=== PATIENT | male | born 1975 | race African-American/Black ===

== ENCOUNTER 2024-10-15 11:54 | Inpatient (IN) | payer MEDICARE, MEDICAID ==
[2024-10-15 12:32] LABS: #Basophils 0.04 10x3/uL (0.0-0.2); %Basophils 0.5 % (0.0-1.0); %Eosinophils 4.5 % (0.0-10.0); %Lymphocytes 21.8 % (21.0-51.0); %Monocytes 8.3 % (0.0-10.0); %Neutrophils 64.7 % (42.0-75.0); Hemoglobin 13.2 g/dL (14.0-18.0); Mean Corpuscular HGB CONC 31.4 g/dL (32.0-36.0); Mean Corpuscular Hemoglobin 27.9 pg (27.0-31.0); Mean Corpuscular Volume 88.8 fL (78.0-98.0); Mean Platelet Volume 10.4 fL (7.4-10.4); Platelet Count 175 10x3/uL (130-400); RBC Distribution Width 13.6 % (11.5-14.5); Red Blood Cell (RBC) Count 4.73 mill/uL (4.70-6.10)
[2024-10-15 12:54] LABS: ALT (SGPT) 14 U/L (8-55); AST (SGOT) 19 U/L (5-34); Albumin 3.4 g/dL (3.5-5.0); Alkaline Phosphatase 127 U/L (40-110); Anion Gap 19 mmol/L (10-20); BUN (Urea Nitrogen) 39 mg/dL (8.9-20.6); Bilirubin, Total 0.5 mg/dL (0.2-1.2); Calc. Creatinine Clearance 0 mL/min (70-130); Carbon Dioxide 25 mmol/L (22-29); Chloride 95 mmol/L (98-107); Estimated GFR 6; Globulin 5.1 g/dL (2.4-3.5); Glucose 259 mg/dL (70-105); Potassium 4.3 mmol/L (3.5-5.1); Protein, Total 8.5 g/dL (6.0-8.3); Sodium 135 mmol/L (136-145)
[2024-10-15 12:56] LABS: Troponin I 0.013 ng/mL (< 0.028)
[2024-10-15 14:51] VITALS: BMI 23.8
[2024-10-15] MEDS ORDERED: Dextrose 5% in Water 1,000 ML IV PRN (15:14)
[2024-10-15] MEDS ORDERED: Glucagon 1 MG/ML KIT IM PRN (15:14)
[2024-10-15] MEDS ORDERED: Insulin Lispro 100 UNIT/ML 10 ML VIAL SC PRN (15:14)
[2024-10-15] MEDS ORDERED: Acetaminophen 650 MG Suppository PR PRN (15:14)
[2024-10-15] MEDS ORDERED: Ondansetron ODT 4 MG TAB PO PRN (15:14)
[2024-10-15] MEDS ORDERED: Senokot S 8.6-50 MG TAB PO PRN (15:14)
[2024-10-15] MEDS ORDERED: Ondansetron PF 4 MG/2 ML Vial IVP PRN (15:14)
[2024-10-15] MEDS ORDERED: Dextrose 50% Abboject 50 ML SYRINGE SLOW IVP PRN (15:14)
[2024-10-15 16:57] LABS: HBSAB Concentration 106.06 mIU/mL; HBsAg Index 0.32 S/CO (0-0.99); Hep B Core Total Ab NONREACTIVE (NonReactive); Hep B Core Total Index 0.18 S/CO (0-0.79); Hep B Surf AB REACTIVE (NonReactive); Hep B Surf Ag NONREACTIVE S/CO (NonReactive); Hep C IgG Ab NONREACTIVE S/CO (NonReactive); Hep C Index 0.13 S/CO (0-0.79)
[2024-10-15] MEDS: Sevelamer Carbonate 800 MG TAB PO SCH (17:00)
[2024-10-15] MEDS ORDERED: Sevelamer Carbonate 800 MG TAB PO SCH (21:00)
[2024-10-15] MEDS ORDERED: Floranex 1 GM Packet PO SCH (21:00)
[2024-10-15] MEDS ORDERED: NIFEdipine XL 60 MG ER.TAB PO SCH (21:00)
[2024-10-16 05:44] LABS: #Basophils Less than 0.03 10x3/uL (0.0-0.2); %Basophils 0.3 % (0.0-1.0); %Eosinophils 4.7 % (0.0-10.0); %Lymphocytes 20.5 % (21.0-51.0); %Monocytes 12.5 % (0.0-10.0); %Neutrophils 61.8 % (42.0-75.0); Hematocrit 35.4 % (42.0-52.0); Hemoglobin 11.3 g/dL (14.0-18.0); Mean Corpuscular HGB CONC 31.9 g/dL (32.0-36.0); Mean Corpuscular Hemoglobin 27.8 pg (27.0-31.0); Mean Corpuscular Volume 87.2 fL (78.0-98.0); Mean Platelet Volume 10.4 fL (7.4-10.4); Platelet Count 142 10x3/uL (130-400); RBC Distribution Width 13.4 % (11.5-14.5); Red Blood Cell (RBC) Count 4.06 mill/uL (4.70-6.10)
[2024-10-16 06:23] LABS: ALT (SGPT) 9 U/L (8-55); AST (SGOT) 15 U/L (5-34); Albumin 2.7 g/dL (3.5-5.0); Alkaline Phosphatase 98 U/L (40-110); Anion Gap 16 mmol/L (10-20); BUN (Urea Nitrogen) 50 mg/dL (8.9-20.6); Bilirubin, Total 0.5 mg/dL (0.2-1.2); Calc. Creatinine Clearance 8 mL/min (70-130); Calcium 8.4 mg/dL (7.8-10.44); Carbon Dioxide 27 mmol/L (22-29); Chloride 98 mmol/L (98-107); Estimated GFR 5; Globulin 3.9 g/dL (2.4-3.5); Glucose 247 mg/dL (70-105); Potassium 4.6 mmol/L (3.5-5.1); Protein, Total 6.6 g/dL (6.0-8.3); Sodium 136 mmol/L (136-145)
[2024-10-16] MEDS: Folic Acid/Vit B Comp W-C PO SCH (08:41)
[2024-10-16] MEDS ORDERED: Amlodipine 5 MG TAB PO SCH (09:00)
[2024-10-16] MEDS ORDERED: NIFEdipine XL 90 MG ER.TAB PO SCH (09:00)
[2024-10-16] MEDS: hydrALAZINE 20 MG/ML VIAL SLOW IVP PRN (17:05)
[2024-10-16] MEDS: Insulin Lispro 100 UNIT/ML 10 ML VIAL SC PRN (17:13)
[2024-10-16] MEDS: NIFEdipine XL 30 MG ER.TAB PO SCH (18:42)
[2024-10-16] MEDS: Acetaminophen 325 MG TAB PO PRN (19:54)
[2024-10-16] MEDS: Insulin Glargine 30 UNITS/0.3 ML VIAL SC SCH (19:57)
[2024-10-17 04:16] LABS: #Basophils 0.03 10x3/uL (0.0-0.2); %Basophils 0.4 % (0.0-1.0); %Eosinophils 3.6 % (0.0-10.0); %Lymphocytes 16.5 % (21.0-51.0); %Neutrophils 68.2 % (42.0-75.0); Hematocrit 34.4 % (42.0-52.0); Mean Corpuscular Hemoglobin 27.6 pg (27.0-31.0); Mean Corpuscular Volume 86.2 fL (78.0-98.0); Mean Platelet Volume 10.6 fL (7.4-10.4); Platelet Count 134 10x3/uL (130-400); RBC Distribution Width 13.3 % (11.5-14.5); Red Blood Cell (RBC) Count 3.99 mill/uL (4.70-6.10)
[2024-10-17 04:42] LABS: ALT (SGPT) 8 U/L (8-55); AST (SGOT) 11 U/L (5-34); Albumin 2.7 g/dL (3.5-5.0); Alkaline Phosphatase 111 U/L (40-110); Anion Gap 20 mmol/L (10-20); BUN (Urea Nitrogen) 64 mg/dL (8.9-20.6); Bilirubin, Total 0.5 mg/dL (0.2-1.2); Calc. Creatinine Clearance 7 mL/min (70-130); Calcium 8.5 mg/dL (7.8-10.44); Carbon Dioxide 24 mmol/L (22-29); Chloride 99 mmol/L (98-107); Estimated GFR 4; Globulin 3.7 g/dL (2.4-3.5); Glucose 240 mg/dL (70-105); Potassium 4.8 mmol/L (3.5-5.1); Protein, Total 6.4 g/dL (6.0-8.3); Sodium 138 mmol/L (136-145)
[2024-10-17] MEDS: LOKELMA 10 GM PACKET PO SCH (08:56)
[2024-10-17] MEDS: Losartan 25 MG TAB PO SCH (08:56)
[2024-10-17] MEDS: NIFEdipine XL 30 MG ER.TAB PO SCH (12:35)
[2024-10-18 05:37] LABS: #Basophils 0.03 10x3/uL (0.0-0.2); %Basophils 0.4 % (0.0-1.0); %Eosinophils 2.6 % (0.0-10.0); %Lymphocytes 17.2 % (21.0-51.0); %Neutrophils 67.4 % (42.0-75.0); Hematocrit 31.8 % (42.0-52.0); Hemoglobin 10.2 g/dL (14.0-18.0); Mean Corpuscular HGB CONC 32.1 g/dL (32.0-36.0); Mean Corpuscular Hemoglobin 27.9 pg (27.0-31.0); Mean Corpuscular Volume 86.9 fL (78.0-98.0); Platelet Count 157 10x3/uL (130-400); RBC Distribution Width 13.2 % (11.5-14.5); Red Blood Cell (RBC) Count 3.66 mill/uL (4.70-6.10)
[2024-10-18 05:53] LABS: ALT (SGPT) 7 U/L (8-55); AST (SGOT) 11 U/L (5-34); Albumin 2.6 g/dL (3.5-5.0); Alkaline Phosphatase 87 U/L (40-110); Anion Gap 20 mmol/L (10-20); BUN (Urea Nitrogen) 74 mg/dL (8.9-20.6); Bilirubin, Total 0.5 mg/dL (0.2-1.2); Calc. Creatinine Clearance 6 mL/min (70-130); Calcium 7.9 mg/dL (7.8-10.44); Carbon Dioxide 23 mmol/L (22-29); Chloride 96 mmol/L (98-107); Estimated GFR 4; Globulin 3.6 g/dL (2.4-3.5); Glucose 190 mg/dL (70-105); Potassium 4.5 mmol/L (3.5-5.1); Protein, Total 6.2 g/dL (6.0-8.3); Sodium 134 mmol/L (136-145)
[2024-10-18] MEDS: Calcitriol 0.25 MCG CAP PO SCH (07:56)
[2024-10-18] MEDS: NIFEdipine XL 30 MG ER.TAB PO SCH (07:57)
[2024-10-18] MEDS: predniSONE 50 MG TAB PO SCH (23:18)
[2024-10-19 05:09] LABS: #Basophils Less than 0.03 10x3/uL (0.0-0.2); #Eosinophils Less than 0.03 10x3/uL (0.0-0.7); %Basophils 0.3 % (0.0-1.0); %Eosinophils 0.1 % (0.0-10.0); %Lymphocytes 5.8 % (21.0-51.0); %Monocytes 1.7 % (0.0-10.0); %Neutrophils 91.8 % (42.0-75.0); Hematocrit 35.6 % (42.0-52.0); Hemoglobin 11.6 g/dL (14.0-18.0); Mean Corpuscular HGB CONC 32.6 g/dL (32.0-36.0); Mean Corpuscular Hemoglobin 28.1 pg (27.0-31.0); Mean Corpuscular Volume 86.2 fL (78.0-98.0); Mean Platelet Volume 10.9 fL (7.4-10.4); Platelet Count 183 10x3/uL (130-400); RBC Distribution Width 13.2 % (11.5-14.5); Red Blood Cell (RBC) Count 4.13 mill/uL (4.70-6.10)
[2024-10-19 05:28] LABS: Anion Gap 23 mmol/L (10-20); BUN (Urea Nitrogen) 87 mg/dL (8.9-20.6); Calc. Creatinine Clearance 6 mL/min (70-130); Calcium 8.4 mg/dL (7.8-10.44); Carbon Dioxide 20 mmol/L (22-29); Chloride 96 mmol/L (98-107); Estimated GFR 3; Glucose 234 mg/dL (70-105); Potassium 5.7 mmol/L (3.5-5.1); Sodium 133 mmol/L (136-145)
[2024-10-19 05:38] LABS: Prothrombin Time 13.5 sec (12.0-14.7)
[2024-10-19 08:01] LABS: Anion Gap 23 mmol/L (10-20); BUN (Urea Nitrogen) 89 mg/dL (8.9-20.6); Calc. Creatinine Clearance 5 mL/min (70-130); Calcium 8.4 mg/dL (7.8-10.44); Carbon Dioxide 20 mmol/L (22-29); Chloride 95 mmol/L (98-107); Estimated GFR 3; Glucose 281 mg/dL (70-105); Potassium 5.8 mmol/L (3.5-5.1); Sodium 132 mmol/L (136-145)
[2024-10-19] MEDS ORDERED: Sodium Bicarbonate 2.5 MEQ/5 ML SDV ONE (09:29)
[2024-10-19] MEDS ORDERED: Lidocaine 1% PF 5 ML VIAL ONE (09:29)
[2024-10-19] MEDS ORDERED: Iopamidol 30 ML ONE ×2 (09:30→12:22)
[2024-10-19] MEDS ORDERED: Iopamidol 100 ML FS ONE ×2 (10:00→13:22)
[2024-10-19] MEDS: diphenhydrAMINE 25 MG CAP PO SCH (10:11)
[2024-10-19] MEDS ORDERED: Lidocaine 1% w/Epinephrine 1:100K 20 ML VIAL ONE (10:15)
[2024-10-19] MEDS ORDERED: fentaNYL 50 mcg/mL 1 mL Vial ONE ×2 (10:54→12:57)
[2024-10-19] MEDS ORDERED: Midazolam HCl 2 mg/2 ml Vial ONE (10:54)
[2024-10-19] MEDS ORDERED: Heparin 10,000 UNITS/ 10 ML VIAL ONE ×2 (10:55→12:30)
[2024-10-19] MEDS ORDERED: Activase 2 MG VIAL ONE (10:55)
[2024-10-19] MEDS ORDERED: Sterile Water 10 ML ONE (10:57)
[2024-10-19] MEDS ORDERED: hydrALAZINE 20 MG/ML VIAL ONE (16:03)
[2024-10-19] MEDS: LOKELMA 10 GM PACKET PO SCH ×2 (16:41→20:14)
[2024-10-19 16:45] LABS: #Basophils Less than 0.03 10x3/uL (0.0-0.2); #Eosinophils Less than 0.03 10x3/uL (0.0-0.7); %Basophils 0.1 % (0.0-1.0); %Lymphocytes 5.2 % (21.0-51.0); %Monocytes 1.6 % (0.0-10.0); %Neutrophils 92.8 % (42.0-75.0); Hematocrit 42.9 % (42.0-52.0); Hemoglobin 12.9 g/dL (14.0-18.0); Mean Corpuscular HGB CONC 30.1 g/dL (32.0-36.0); Mean Corpuscular Hemoglobin 27.7 pg (27.0-31.0); Mean Corpuscular Volume 92.1 fL (78.0-98.0); Mean Platelet Volume 10.6 fL (7.4-10.4); Platelet Count 202 10x3/uL (130-400); RBC Distribution Width 13.6 % (11.5-14.5); Red Blood Cell (RBC) Count 4.66 mill/uL (4.70-6.10)
[2024-10-19 16:54] LABS: Anion Gap 26 mmol/L (10-20); BUN (Urea Nitrogen) 97 mg/dL (8.9-20.6); Calc. Creatinine Clearance 6 mL/min (70-130); Calcium 8.7 mg/dL (7.8-10.44); Carbon Dioxide 17 mmol/L (22-29); Chloride 93 mmol/L (98-107); Estimated GFR 3; Glucose 314 mg/dL (70-105); Potassium 5.8 mmol/L (3.5-5.1); Sodium 130 mmol/L (136-145)
[2024-10-19 19:58] LABS: #Basophils Less than 0.03 10x3/uL (0.0-0.2); #Eosinophils Less than 0.03 10x3/uL (0.0-0.7); %Basophils 0.1 % (0.0-1.0); %Lymphocytes 4.7 % (21.0-51.0); %Monocytes 2.8 % (0.0-10.0); %Neutrophils 92.1 % (42.0-75.0); Hematocrit 33.6 % (42.0-52.0); Mean Corpuscular HGB CONC 32.7 g/dL (32.0-36.0); Mean Corpuscular Hemoglobin 27.8 pg (27.0-31.0); Mean Corpuscular Volume 85.1 fL (78.0-98.0); Mean Platelet Volume 10.3 fL (7.4-10.4); Platelet Count 208 10x3/uL (130-400); RBC Distribution Width 13.3 % (11.5-14.5); Red Blood Cell (RBC) Count 3.95 mill/uL (4.70-6.10)
[2024-10-19 20:09] LABS: ALT (SGPT) 11 U/L (8-55); AST (SGOT) 14 U/L (5-34); Albumin 2.9 g/dL (3.5-5.0); Alkaline Phosphatase 94 U/L (40-110); Anion Gap 26 mmol/L (10-20); BUN (Urea Nitrogen) 99 mg/dL (8.9-20.6); Bilirubin, Total 0.6 mg/dL (0.2-1.2); Calc. Creatinine Clearance 6 mL/min (70-130); Calcium 8.5 mg/dL (7.8-10.44); Carbon Dioxide 17 mmol/L (22-29); Chloride 92 mmol/L (98-107); Estimated GFR 3; Globulin 4.4 g/dL (2.4-3.5); Glucose 335 mg/dL (70-105); Potassium 5.7 mmol/L (3.5-5.1); Protein, Total 7.3 g/dL (6.0-8.3); Sodium 129 mmol/L (136-145)
[2024-10-19] MEDS: Sodium Bicarb 50 mEq/50 ML VIAL IVP SCH (20:18)
[2024-10-19] MEDS: Heparin 5,000 UNITS/ML VIAL SC SCH (20:18)
[2024-10-19] MEDS: Sodium Bicarbonate Tab 325 MG TAB PO SCH (20:18)
[2024-10-20] MEDS: LOKELMA 10 GM PACKET PO SCH ×2 (00:05→06:36)
[2024-10-20 04:35] LABS: #Basophils Less than 0.03 10x3/uL (0.0-0.2); #Eosinophils Less than 0.03 10x3/uL (0.0-0.7); %Basophils 0.1 % (0.0-1.0); %Lymphocytes 8.3 % (21.0-51.0); %Monocytes 10.7 % (0.0-10.0); %Neutrophils 80.5 % (42.0-75.0); Hemoglobin 9.7 g/dL (14.0-18.0); Mean Corpuscular HGB CONC 33.4 g/dL (32.0-36.0); Mean Corpuscular Hemoglobin 27.7 pg (27.0-31.0); Mean Corpuscular Volume 82.9 fL (78.0-98.0); Platelet Count 189 10x3/uL (130-400); RBC Distribution Width 13.2 % (11.5-14.5)
[2024-10-20 04:52] LABS: Anion Gap 24 mmol/L (10-20); BUN (Urea Nitrogen) 102 mg/dL (8.9-20.6); Calc. Creatinine Clearance 5 mL/min (70-130); Calcium 8.2 mg/dL (7.8-10.44); Carbon Dioxide 20 mmol/L (22-29); Chloride 90 mmol/L (98-107); Estimated GFR 3; Glucose 319 mg/dL (70-105); Potassium 5.4 mmol/L (3.5-5.1); Sodium 129 mmol/L (136-145)
[2024-10-20] MEDS: Sodium Bicarb 50 MEQ/50 ML Abboject 8.4% SYRINGE IVP SCH (06:36)
[2024-10-20] MEDS ORDERED: Dextrose 5% in Water 1,000 ML IV PRN (08:25)
[2024-10-20] MEDS ORDERED: Glucagon 1 MG/ML KIT IM PRN (08:25)
[2024-10-20] MEDS ORDERED: Dextrose 50% Abboject 50 ML SYRINGE SLOW IVP PRN (08:25)
[2024-10-20] MEDS ORDERED: Heparin 10,000 UNITS/ 10 ML VIAL ONE ×2 (09:53→13:25)
[2024-10-20] MEDS ORDERED: Lidocaine 2% PF 5 ML VIAL ONE ×2 (09:53→11:35)
[2024-10-20] MEDS ORDERED: EPINEPHrine 1 MG/ML VIAL ONE (09:53)
[2024-10-20] MEDS ORDERED: Bupivacaine PF 0.5% 30 ML VIAL ONE (09:54)
[2024-10-20] MEDS ORDERED: Insulin Regular, Human 100 UNIT/ML 10 ML VIAL ONE ×2 (10:51→11:17)
[2024-10-20] MEDS ORDERED: Propofol 1,000 MG/100 ML VIAL IV ONE (11:21)
[2024-10-20] MEDS ORDERED: Midazolam HCl 2 mg/2 ml Vial ONE (11:35)
[2024-10-20] MEDS ORDERED: fentaNYL 50 mcg/mL 1 mL Vial ONE (11:35)
[2024-10-20] MEDS ORDERED: Glycopyrrolate 0.2 MG/ML 5 ML SYRINGE ONE (11:35)
[2024-10-20] MEDS ORDERED: PHENYLEPHRINE-NS 100 MCG/ML 10 ML SYRINGE ONE (11:35)
[2024-10-20] MEDS ORDERED: CEFAZOLIN 1 GM VIAL ONE (11:59)
[2024-10-20] MEDS: Insulin Lispro 100 UNIT/ML 10 ML VIAL SC SCH (12:30)
[2024-10-21 04:41] LABS: #Basophils 0.03 10x3/uL (0.0-0.2); %Basophils 0.4 % (0.0-1.0); %Eosinophils 2.8 % (0.0-10.0); %Lymphocytes 19.1 % (21.0-51.0); %Monocytes 14.8 % (0.0-10.0); %Neutrophils 62.8 % (42.0-75.0); Hematocrit 29.9 % (42.0-52.0); Hemoglobin 9.9 g/dL (14.0-18.0); Mean Corpuscular HGB CONC 33.1 g/dL (32.0-36.0); Mean Corpuscular Volume 84.5 fL (78.0-98.0); Mean Platelet Volume 10.5 fL (7.4-10.4); Platelet Count 200 10x3/uL (130-400); RBC Distribution Width 13.5 % (11.5-14.5); Red Blood Cell (RBC) Count 3.54 mill/uL (4.70-6.10)
[2024-10-21 05:00] LABS: Anion Gap 16 mmol/L (10-20); BUN (Urea Nitrogen) 38 mg/dL (8.9-20.6); Calc. Creatinine Clearance 9 mL/min (70-130); Calcium 8.1 mg/dL (7.8-10.44); Carbon Dioxide 26 mmol/L (22-29); Chloride 99 mmol/L (98-107); Estimated GFR 6; Glucose 152 mg/dL (70-105); Potassium 3.9 mmol/L (3.5-5.1); Sodium 137 mmol/L (136-145)
[2024-10-21 11:48] VITALS: BP 125/77; TEMP 98.2
[2024-10-21] MEDS: Insulin Lispro 100 UNIT/ML 10 ML VIAL SC PRN (12:16)
== END 2024-10-21 14:55 | DRG 252 ==
LOC: ERS 11:54 → T4-A 14:33 → OBSVTOIN 10-17 12:58 → 2NO 10-19 19:45
PROVIDERS: ADMIT Internal Medicine; ATTEND Hospitalist
PROC: B51W1ZZ Fluoroscopy of Dialysis Shunt/Fistula using Low Osmolar Contrast (ICD-10-PCS; principal; 2024-10-19)
PROC: 05C73ZZ Extirpation of Matter from Right Axillary Vein, Percutaneous Approach (ICD-10-PCS; 2024-10-19)
PROC: 05CD3ZZ Extirpation of Matter from Right Cephalic Vein, Percutaneous Approach (ICD-10-PCS; 2024-10-19)
PROC: 3E03317 Introduction of Other Thrombolytic into Peripheral Vein, Percutaneous Approach (ICD-10-PCS; 2024-10-19)
PROC: 05773ZZ Dilation of Right Axillary Vein, Percutaneous Approach (ICD-10-PCS; 2024-10-19)
PROC: 057D3ZZ Dilation of Right Cephalic Vein, Percutaneous Approach (ICD-10-PCS; 2024-10-19)
PROC: 0JH63XZ Insertion of Tunneled Vascular Access Device into Chest Subcutaneous Tissue and Fascia, Percutaneous Approach (ICD-10-PCS; 2024-10-20)
PROC: 02HV33Z Insertion of Infusion Device into Superior Vena Cava, Percutaneous Approach (ICD-10-PCS; 2024-10-20)
PROC: B5181ZA Fluoroscopy of Superior Vena Cava using Low Osmolar Contrast, Guidance (ICD-10-PCS; 2024-10-20)
DX: T82.868A Thrombosis due to vascular prosthetic devices, implants and grafts, initial encounter (principal); N18.6 End stage renal disease; E87.1 Hypo-osmolality and hyponatremia; I12.0 Hypertensive chronic kidney disease with stage 5 chronic kidney disease or end stage renal disease; D63.1 Anemia in chronic kidney disease; E11.22 Type 2 diabetes mellitus with diabetic chronic kidney disease; E11.319 Type 2 diabetes mellitus with unspecified diabetic retinopathy without macular edema; H54.8 Legal blindness, as defined in USA; E87.5 Hyperkalemia; E11.65 Type 2 diabetes mellitus with hyperglycemia; Z91.013 Allergy to seafood; Z91.018 Allergy to other foods; Z99.2 Dependence on renal dialysis; Z98.890 Other specified postprocedural states; Z87.891 Personal history of nicotine dependence
CPT/HCPCS: 36415; 36416; 36901; 36905; 71045; 80048; 80053; 84484; 85025; 85347; 85610; 85730; 86704; 86706; 86803; 87340; 90935; 93005; 99152; 99153; A6258; C1725; C1752; C1757; C1769; C1887; C1894; G0257; J0171; J0360; J0665; J0690; J1644; J1815; J2250; J2704; J2997; J3010; J7512; Q9967